=== PATIENT | male | born 1980 | race Caucasian/White ===

== ENCOUNTER 2019-07-04 18:14 | Inpatient (IN) | payer OTHER ==
[~2019-07-04] VITALS: Ht 180.3 cm; Wt 80.1 kg
[2019-07-04 18:15] VITALS: BP 139/81
[2019-07-04] MEDS ORDERED: POTASSIUM20 PO (18:24)
[2019-07-04 18:39] LABS: HEMATOCRIT 43.7 % (42.0-52.0); MCH 34.8 pg (26.0-34.0); MCHC 34.3 g/dL (28.0-37.0); MCV 101.5 fL (80.0-100.0); PLATELET COUNT 211 thou/uL (150-400); RDW 16.9 % (10.5-14.5); WBC 20.4 thou/uL (4.0-11.0)
[2019-07-04 18:49] LABS: ALBUMIN 4.2 g/dL (3.4-5.0); CALCIUM 8.9 mg/dL (8.5-10.1); CREATININE 0.9 mg/dL (0.7-1.3); MAGNESIUM 1.7 mg/dL (1.8-2.4); TOTAL BILIRUBIN 1.3 mg/dL (<0.1-1.0); TOTAL PROTEIN 8.3 g/dL (6.4-8.2)
[2019-07-04 18:57] LABS: POTASSIUM 2.3 mmol/L (3.5-5.1)
[2019-07-04 19:03] LABS: ABSOLUTE NEUTROPHILS 15.9 thou/uL (1.4-8.2); ANISOCYTOSIS 1+
[2019-07-04 20:38] LABS: BE(vivo) -7.4 mmol/L (-2 to +3); HCO3 17.7 mmol/L (22.0-26.0); PCO2 VENOUS 34.8 mmHg (41.0-51.0); PO2 VENOUS 79.5 mmHg (35.0-45.0)
[2019-07-05 00:38] VITALS: BP 124/83
[2019-07-05 00:43] LABS: URINE BILIRUBIN NEGATIVE (Negative); URINE BLOOD NEGATIVE (Negative); URINE CLARITY CLEAR; URINE COLOR YELLOW; URINE GLUCOSE-RANDOM* NEGATIVE (Negative); URINE KETONES NEGATIVE (Negative); URINE LEUKOCYTES-REFLEX NEGATIVE (Negative); URINE NITRITE-REFLEX NEGATIVE (Negative); URINE PROTEIN (DIPSTICK) NEGATIVE (Negative); URINE SPECIFIC GRAVITY 1.025 (1.005-1.035)
[2019-07-05 00:44] VITALS: BP 116/74
[2019-07-05 00:52] LABS: AMP/METHAMP Negative (Negative); BARBITURATES POSITIVE (Negative); BENZODIAZEPINES POSITIVE (Negative); COCAINE Negative (Negative); METHADONE Negative (Negative); OPIATES POSITIVE (Negative); PCP Negative (Negative)
[2019-07-05 05:40] VITALS: BP 113/73
--- NOTE | 2019-07-05 06:19 | NUR ---
Arrived from ER around 0100. Pt. cooperative but irritable at times. Denies any pain. No nausea or vomiting. 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 Bed alarm on for safety and SCD's in place for DVT prophylaxis. Will continue to monitor.
[2019-07-05 07:50] LABS: ALBUMIN 3.1 g/dL (3.4-5.0); CALCIUM 8.1 mg/dL (8.5-10.1); CREATININE 0.7 mg/dL (0.7-1.3); MAGNESIUM 1.8 mg/dL (1.8-2.4); TOTAL PROTEIN 6.4 g/dL (6.4-8.2)
[2019-07-05 08:04] VITALS: BP 144/77
--- NOTE | 2019-07-05 08:34 | EKG ---
[facility] [place] [address] ELECTROCARDIOGRAM REPORT Name: AMAURI LUA Room #: 207-P ADM IN M.R.#: [id number] Admission: 07/04/19 Attend Phys: Marry Valdes Discharge: Date of : 78 Report #: [id number] THIS REPORT FOR: cc: FAM - No family physician/PCP FAM - No family physician/PCP Jorge Tinoco MD [facility] ~ THIS REPORT FOR: //name// [facility] ED Test Date: 2019-07-04 Test Time: 18:32:09 Pat Name: AMAURI LUA Department: Room: 207 Gender: M Director Of Orthopedics: [facility]alessio : 1980 Requested By: Flaquita Odom Order Number: [id number] MD: Jorge Tinoco Measurements Intervals [place] Rate: 97 P: 57 RI: 141 QRS: 41 QRSD: 106 T: 18 QT: 359 QTc: 456 Interpretive Statements Sinus rhythm Nonspecific ST segment abnormality Compared to ECG 02/01/2008 18:01:[address] segment abnormality is now present Electronically Signed On 07-05-2019 8:32:50 CDT by Jorge Tinoco [email or web address] <ELECTRONICALLY SIGNED> By: Jorge Tinoco MD, [facility] 07/05/19 0832 31 31 Jorge Tinoco MD, [facility] /EPI
[2019-07-05] MEDS ORDERED: POTASSIUM20 PO (09:58)
[2019-07-05 10:30] VITALS: BP 144/77
--- NOTE | 2019-07-05 10:44 | NUR ---
PT CARE ASSUMED APPROX 0700. ASSESSMENT CHARTED. PT DENIES PAIN, SOA AND N/V. K+ LEVEL UPPER LIMITS OF NORMAL. PT APPROVED FOR DISCHARGE. DISCHARGE PAPERWORK AND EDUCATION REVIEWED WITH PT. HE DENIED QUESTIONS OR CONCERNS REGARDING POST HOSPITAL CARES. IV OUT, TELE BOX OFF. PT ESCORTED OFF UNIT VIA WHEELCHAIR FOR DISMISSAL.
[2019-07-06 00:07] LABS: GLYCOHEMOGLOBIN (HGB A1C) 5.8 % (4.8-5.6)
== END 2019-07-05 10:40 | disposition home or self-care (01) | DRG 641 ==
LOC: ER 18:14 → EROBS 20:47 → 2N 07-05 00:45
PROVIDERS: Nurse Practitioner Family; Physician Assistant; ADMIT Hospitalist
DX: E87.6 Hypokalemia (principal); F17.210 Nicotine dependence, cigarettes, uncomplicated; E83.42 Hypomagnesemia; D72.829 Elevated white blood cell count, unspecified; F10.129 Alcohol abuse with intoxication, unspecified; R73.9 Hyperglycemia, unspecified; R74.0 Nonspecific elevation of levels of transaminase and lactic acid dehydrogenase [LDH]; Z87.81 Personal history of (healed) traumatic fracture; Z80.1 Family history of malignant neoplasm of trachea, bronchus and lung

== ENCOUNTER 2019-07-21 19:57 | Emergency (ER) | payer OTHER ==
[~2019-07-21] VITALS: Ht 180.3 cm; Wt 79.4 kg
[~2019-07-21 19:57] MED LIST: POTASSIUM20 PO
[2019-07-21 20:16] LABS: ABSOLUTE NEUTROPHILS 11.8 thou/uL (1.4-8.2); BASOPHILS 0.3 % (0.0-2.0); EOSINOPHILS 0.4 % (0.0-3.0); HEMATOCRIT 42.3 % (42.0-52.0); HEMOGLOBIN 14.5 gm/dL (14.0-18.0); LYMPHOCYTES 6.9 % (24.0-44.0); MCH 35.3 pg (26.0-34.0); MCHC 34.3 g/dL (28.0-37.0); MCV 102.7 fL (80.0-100.0); PLATELET COUNT 81 thou/uL (150-400); POLYS 86.4 % (36.0-66.0); RBC 4.12 mil/uL (4.50-6.00)
[2019-07-21 20:30] LABS: CALCIUM 9.4 mg/dL (8.5-10.1); CREATININE 1.2 mg/dL (0.7-1.3); POTASSIUM 3.9 mmol/L (3.5-5.1)
[2019-07-21 20:36] LABS: ALBUMIN 4.3 g/dL (3.4-5.0); TOTAL BILIRUBIN 0.8 mg/dL (<0.1-1.0); TOTAL PROTEIN 8.6 g/dL (6.4-8.2)
[2019-07-21] MEDS ORDERED: XANAX 0.5 MG0.5 MG PO (21:14)
[2019-07-21] MEDS ORDERED: ZOFRAN ODT4 MG PO (21:14)
[2019-07-21 21:29] VITALS: BP 142/85
== END 2019-07-21 21:33 | disposition home or self-care (01) ==
LOC: ER 19:57
PROVIDERS: Emergency Medicine
DX: R11.15 Cyclical vomiting syndrome unrelated to migraine (principal); R11.2 Nausea with vomiting, unspecified; Z87.891 Personal history of nicotine dependence

== ENCOUNTER 2019-10-06 17:15 | Emergency (ER) | payer OTHER ==
[~2019-10-06] VITALS: Ht 177.8 cm; Wt 72.6 kg
[~2019-10-06 17:15] MED LIST changes: +XANAX 0.5 MG0.5 MG PO; +ZOFRAN ODT4 MG PO
[2019-10-06 18:01] LABS: URINE BLOOD 1+ (Negative); URINE CLARITY CLEAR; URINE GLUCOSE-RANDOM* NEGATIVE (Negative); URINE KETONES NEGATIVE (Negative); URINE LEUKOCYTES-REFLEX NEGATIVE (Negative); URINE NITRITE-REFLEX NEGATIVE (Negative); URINE PROTEIN (DIPSTICK) TRACE (Negative); URINE SPECIFIC GRAVITY 1.025 (1.005-1.035)
[2019-10-06 18:01] LABS: ABSOLUTE NEUTROPHILS 6.1 thou/uL (1.4-8.2); BASOPHILS 0.7 % (0.0-2.0); EOSINOPHILS 0.1 % (0.0-3.0); HEMATOCRIT 39.8 % (42.0-52.0); HEMOGLOBIN 14.1 gm/dL (14.0-18.0); MCH 36.9 pg (26.0-34.0); MCHC 35.3 g/dL (28.0-37.0); MCV 104.4 fL (80.0-100.0); MONOCYTES 5.3 % (1.0-8.0); PLATELET COUNT 152 thou/uL (150-400); POLYS 79.9 % (36.0-66.0); RBC 3.81 mil/uL (4.50-6.00); RDW 17.2 % (10.5-14.5); WBC 7.7 thou/uL (4.0-11.0)
[2019-10-06 18:03] LABS: URINE COLOR DK YELLOW
[2019-10-06 18:04] LABS: ICTOTEST (BILI CONFIRMATORY) Negative (Negative); URINE BILIRUBIN NEGATIVE (Negative)
[2019-10-06 18:17] LABS: BACTERIA-REFLEX None Seen /HPF (None Seen); CASTS None Seen /LPF (None Seen); MUCUS >6 Heavy strn/LPF (None Seen); SQUAMOUS 0-3 Few /LPF (0-3); URINE RBC 0-2 Rare /HPF (0-2); URINE WBC-REFLEX 0-5 Rare /HPF (0-5)
[2019-10-06 18:18] LABS: CRYSTALS None Seen /LPF (None Seen)
[2019-10-06 18:18] LABS: CALCIUM 8.2 mg/dL (8.5-10.1); CREATININE 0.8 mg/dL (0.7-1.3); POTASSIUM 3.7 mmol/L (3.5-5.1)
[2019-10-06 18:25] LABS: ALBUMIN 3.5 g/dL (3.4-5.0); TOTAL BILIRUBIN 1.8 mg/dL (0.2-1.0); TOTAL PROTEIN 7.6 g/dL (6.4-8.2)
[2019-10-06] MEDS ORDERED: ONDANSETRON HCL4 M2 PO (21:11)
[2019-10-06] MEDS ORDERED: NORCO 5-325 TA1 EAC2 PO (21:11)
[2019-10-06 21:22] VITALS: BP 114/70
== END 2019-10-06 21:22 | disposition home or self-care (01) ==
LOC: ER 17:15
PROVIDERS: Physician Assistant
DX: R74.0 Nonspecific elevation of levels of transaminase and lactic acid dehydrogenase [LDH] (principal); R11.2 Nausea with vomiting, unspecified; R10.84 Generalized abdominal pain; Z72.89 Other problems related to lifestyle; F17.210 Nicotine dependence, cigarettes, uncomplicated; Z86.14 Personal history of Methicillin resistant Staphylococcus aureus infection; Z79.899 Other long term (current) drug therapy

== ENCOUNTER 2019-12-05 07:41 | Emergency (ER) | payer OTHER ==
[~2019-12-05] VITALS: Ht 180.3 cm; Wt 79.4 kg
[~2019-12-05 07:41] MED LIST changes: +NORCO 5-325 TA1 EAC2 PO; +ONDANSETRON HCL4 M2 PO
[2019-12-05 07:46] VITALS: BP 136/80
[2019-12-05] MEDS ORDERED: BACTRIM DS TAB1 EACH PO (08:11)
== END 2019-12-05 08:21 | disposition home or self-care (01) ==
LOC: ER 07:41
DX: L73.9 Follicular disorder, unspecified (principal); F17.210 Nicotine dependence, cigarettes, uncomplicated; Z79.899 Other long term (current) drug therapy

== ENCOUNTER 2020-03-21 22:22 | Emergency (ER) | payer OTHER ==
[~2020-03-21] VITALS: Ht 180.3 cm; Wt 79.4 kg
[~2020-03-21 22:22] MED LIST changes: +BACTRIM DS TAB1 EACH PO
[2020-03-21 23:48] LABS: ABSOLUTE NEUTROPHILS 4.4 thou/uL (1.4-8.2); BASOPHILS 0.9 % (0.0-2.0); EOSINOPHILS 1.5 % (0.0-3.0); HEMATOCRIT 44.4 % (42.0-52.0); HEMOGLOBIN 14.9 gm/dL (14.0-18.0); LYMPHOCYTES 17.9 % (24.0-44.0); MCHC 33.6 g/dL (28.0-37.0); MCV 98.4 fL (80.0-100.0); MONOCYTES 8.6 % (1.0-8.0); PLATELET COUNT 116 thou/uL (150-400); POLYS 71.1 % (36.0-66.0); RBC 4.51 mil/uL (4.50-6.00); WBC 6.2 thou/uL (4.0-11.0)
[2020-03-21 23:54] LABS: ANION GAP 14 mmol/L (7-16); BUN 8 mg/dL (7-18); CALCIUM 8.9 mg/dL (8.5-10.1); CHLORIDE 104 mmol/L (98-107); CO2 22 mmol/L (21-32); CREATININE 0.7 mg/dL (0.7-1.3); GLUCOSE 142 mg/dL (74-106); SODIUM 140 mmol/L (136-145)
[2020-03-22 00:02] LABS: ALBUMIN 4.1 g/dL (3.4-5.0); DIRECT BILIRUBIN < 0.1 mg/dL (<0.1-0.2); SALICYLATE 4.8 mg/dL (2.8-20.0); SGOT 225 U/L (15-37); SGPT 167 U/L (16-63); TOTAL BILIRUBIN 0.5 mg/dL (0.2-1.0); TOTAL PROTEIN 8.1 g/dL (6.4-8.2)
[2020-03-22 00:19] VITALS: BP 120/79
[2020-03-22 00:22] LABS: AMP/METHAMP Negative (Negative); BARBITURATES Negative (Negative); BENZODIAZEPINES Negative (Negative); COCAINE Negative (Negative); METHADONE Negative (Negative); OPIATES Negative (Negative); PCP Negative (Negative)
--- NOTE | 2020-03-22 07:42 | EKG ---
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: : 1980 Requested By: Marisol Angeles Order Number: [id number] MD: Jorge Tinoco Measurements Intervals [place] Rate: 91 P: 40 UT: 130 QRS: 58 QRSD: 94 T: 39 QT: 368 QTc: 453 Interpretive Statements Sinus rhythm No significant abnormality Compared to ECG 07/04/2019 18:32:09 No significant changes found Electronically Signed On 03-22-2020 7:42:37 PRODUCTION CONTROL SCHEDULER by Jorge Tinoco [email or web address] <ELECTRONICALLY SIGNED> By: Jorge Tinoco MD, [facility] 03/22/20 0742 2325 2325 Jorge Tinoco MD, [facility] /EPI
== END 2020-03-22 00:20 | disposition left against medical advice (07) ==
LOC: ER 22:22
PROVIDERS: Emergency Medicine
DX: R40.20 Unspecified coma (principal); F10.10 Alcohol abuse, uncomplicated; F17.210 Nicotine dependence, cigarettes, uncomplicated; Z86.14 Personal history of Methicillin resistant Staphylococcus aureus infection; Z53.29 Procedure and treatment not carried out because of patient's decision for other reasons

== ENCOUNTER 2020-08-19 15:28 | Observation (INO) | payer OTHER ==
[~2020-08-19] VITALS: Ht 180.3 cm; Wt 74.5 kg
[2020-08-19 16:28] LABS: ABSOLUTE NEUTROPHILS 5.9 thou/uL (1.4-8.2); BASOPHILS 0.2 % (0.0-2.0); HEMATOCRIT 51.4 % (42.0-52.0); HEMOGLOBIN 17.8 gm/dL (14.0-18.0); LYMPHOCYTES 5.5 % (24.0-44.0); MCH 34.2 pg (26.0-34.0); MCHC 34.7 g/dL (28.0-37.0); MCV 98.6 fL (80.0-100.0); PLATELET COUNT 169 thou/uL (150-400); POLYS 87.3 % (36.0-66.0); RBC 5.21 mil/uL (4.50-6.00); RDW 13.8 % (10.5-14.5); WBC 6.7 thou/uL (4.0-11.0)
[2020-08-19 16:38] LABS: CALCIUM 10.7 mg/dL (8.5-10.1); CREATININE 0.9 mg/dL (0.7-1.3); POTASSIUM 3.3 mmol/L (3.5-5.1)
[2020-08-19 16:42] LABS: APTT 26.7 Seconds (24.5-32.8); INR 1.06; PROTIME 11.5 Seconds (10.5-12.1)
[2020-08-19 16:44] LABS: DIRECT BILIRUBIN 0.4 mg/dL (<0.1-0.2); TOTAL BILIRUBIN 1.3 mg/dL (0.2-1.0); TOTAL PROTEIN 10.2 g/dL (6.4-8.2)
[2020-08-19 18:40] LABS: URINE BLOOD 1+ (Negative); URINE CLARITY CLEAR; URINE COLOR YELLOW; URINE GLUCOSE-RANDOM* NEGATIVE (Negative); URINE KETONES 2+ (Negative); URINE LEUKOCYTES-REFLEX NEGATIVE (Negative); URINE NITRITE-REFLEX NEGATIVE (Negative); URINE PROTEIN (DIPSTICK) 3+ (Negative); URINE SPECIFIC GRAVITY <= 1.005 (1.005-1.035)
[2020-08-19 18:44] LABS: ICTOTEST (BILI CONFIRMATORY) Negative (Negative); URINE BILIRUBIN NEGATIVE (Negative)
[2020-08-19 18:48] LABS: SQUAMOUS None Seen /LPF (0-3)
[2020-08-19 18:49] LABS: AMP/METHAMP Negative (Negative); BACTERIA-REFLEX 1-9 Few /HPF (None Seen); BARBITURATES Negative (Negative); BENZODIAZEPINES Negative (Negative); CASTS None Seen /LPF (None Seen); COCAINE Negative (Negative); METHADONE Negative (Negative); OPIATES Negative (Negative); PCP Negative (Negative); URINE WBC-REFLEX 0-5 Rare /HPF (0-5)
[2020-08-19 18:50] LABS: CRYSTALS None Seen /LPF (None Seen); URINE RBC 3-10 Few /HPF (NONE SEEN)
[2020-08-19 20:49] VITALS: BP 150/87
--- NOTE | 2020-08-19 21:03 | NUR ---
Called to give report and was told RN is busy passing meds and she would call back
[2020-08-19 21:07] LABS: MAGNESIUM 1.5 mg/dL (1.8-2.4); PHOSPHORUS 2.7 mg/dL (2.6-4.7)
[2020-08-19 21:20] VITALS: BP 154/90
[2020-08-19 21:55] LABS: FOLIC ACID 5.4 ng/mL (8.6-58.9)
[2020-08-19 22:04] VITALS: BP 165/110
[2020-08-20 00:11] VITALS: BP 154/92
[2020-08-20 03:48] VITALS: BP 138/90
--- NOTE | 2020-08-20 04:36 | NUR ---
Admission history and assessments completed. Careplan initiated. High fall risks, fall precautions in place. Potassium and Magnesium replaced per protocol. IV fluids infusing. Lorazepam given per CIWA protocol. CIWA 10 to 15, Oriented to person and situation only with visual and auditory hallucinations. Haldol and Reglan given for nausea, QT 0.32 and 0.35. Close patient observation, as he was able to turn bed alarm off and got out to nurse's desk. States he needed to get ready for work. Needs frequent reorientation and direction. Incontinent of stools. NPO after MN for CT of abdomen.
[2020-08-20 05:16] LABS: MCH 34.2 pg (26.0-34.0); MCHC 34.4 g/dL (28.0-37.0); MCV 99.2 fL (80.0-100.0); RBC 4.13 mil/uL (4.50-6.00); RDW 13.4 % (10.5-14.5); WBC 6.9 thou/uL (4.0-11.0)
[2020-08-20 05:23] LABS: HEMOGLOBIN 14.1 gm/dL (14.0-18.0)
[2020-08-20 05:30] LABS: CREATININE 0.6 mg/dL (0.7-1.3); POTASSIUM 3.7 mmol/L (3.5-5.1)
[2020-08-20 05:36] LABS: CALCIUM 8.4 mg/dL (8.5-10.1)
--- NOTE | 2020-08-20 06:41 | NUR ---
MAking slow progress towards outcome goals. Magnesium and Potassium normal after replacement per protocol. Latest CIWA 9- treated per protocol. Fall precautions in place.
--- NOTE | 2020-08-20 07:17 | EKG ---
[address] [address] ELECTROCARDIOGRAM REPORT Name: AMAURI LUA Room #: [facility]#: [id number] Admission: 08/19/20 Attend Phys: Teresita Smith MD Discharge: Date of : 78 Report #: [id number] 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 : 1980 Requested By: Nataliia Prather Order Number: [id number] MD: Navjot Vora Measurements Intervals [place] Rate: 77 P: 71 [place]: 140 QRS: 54 QRSD: 92 T: 35 QT: 392 QTc: 444 Interpretive Statements Sinus rhythm Atrial premature complex Left atrial enlargement Compared to ECG 03/21/2020 23:25:31 Atrial premature complex(es) now present Atrial abnormality now present Electronically Signed On 08-20-2020 7:17:25 CDT by Navjot Vora [email or web address] <ELECTRONICALLY SIGNED> By: Navjot Vora MD, [facility] 08/20/20 0717 1621 162 Navjot Vora MD, [facility] /EPI
[2020-08-20 07:27] VITALS: BP 149/91
[2020-08-20 11:28] VITALS: BP 150/99
[2020-08-20 16:52] VITALS: BP 154/111
--- NOTE | 2020-08-20 19:04 | NUR ---
assumed care of pt at 0700. pt aox2. impulsive. ciwa 9-14. void per bathrooms. wants to go outside to smoke, but understands he is unable to do so. tolerating diet. spoke with brother regarding plan of care.
[2020-08-20 19:30] VITALS: BP 171/111
--- NOTE | 2020-08-20 23:21 | NUR ---
PT ORIENTED X4, BUT FORGETFUL. C/O ANXIETY AND TREMORS. LORAZEPAM AND HALDOL GIVEN FOR ETOH WITHDRAWAL SYMPTOMS. PT VERY IMPULSIVE WHEN HE NEEDED TO GO THE THE BTR. PT'S BROTHER CAME TO VISIT. AT 2129, PT STATED HE WANTED TO GO HOME AND LEAVE THE HOSPITAL. PT WAS EDUCATED THAT HE WAS NOT BEING DISCHARGED AND IF HE LEFT IT WOULD BE AGAINT MEDICAL ADVICE. PT STATED HE UNDERSTOOD BUT STILL WANTED TO LEAVE. NURSING SERICULTURIST AND BIT GRINDER POULTRY PINNER FOR HOSPITALIST NOTIFIED OF PT REQUEST. BIT GRINDER CAME TO TALK TO PT. PT LEFT AMA AROUND 2144.
== END 2020-08-20 21:45 | disposition left against medical advice (07) ==
LOC: ER 15:28 → 3W 19:22 → EROBS 19:22 → 3W 21:21
PROVIDERS: Emergency Medicine; Nurse Practitioner Family; Physician Assistant; ADMIT Internal Medicine; ATTEND Internal Medicine
DX: R10.9 Unspecified abdominal pain (principal); R11.2 Nausea with vomiting, unspecified; Z20.822 Contact with and (suspected) exposure to COVID-19; F10.139 Alcohol abuse with withdrawal, unspecified; E87.6 Hypokalemia; E11.9 Type 2 diabetes mellitus without complications; F17.210 Nicotine dependence, cigarettes, uncomplicated; Z79.899 Other long term (current) drug therapy
CPT/HCPCS: 10879